=== PATIENT | female | born 1995 | race Caucasian/White ===

== ENCOUNTER 2019-01-18 12:02 | Outpatient (CLI) | payer MEDICAID ==
[~2019-01-18] VITALS: Ht 142.2 cm; Wt 73.3 kg
[~2019-01-18 12:02] MED LIST: ACET325T33 PO; CALC600T24 PO; CEPH-443 PO; FERR134T PO; IBUP-1542 PO; IBUP-1561 PO; PREN-6 PO; PRENAT PO
[2019-01-18 12:23] VITALS: BP 110/61; RESP 20
[2019-01-18 12:25] VITALS: Ht 142.2 cm; Wt 73.3 kg
== END 2019-01-18 13:50 | disposition home or self-care (01) ==
LOC: OBT 12:02 → L-D 12:02 → OBT 13:50
PROVIDERS: ATTEND Obstetrics & Gynecology
DX: O48.0 Post-term pregnancy (principal); Z3A.40 40 weeks gestation of pregnancy
CPT/HCPCS: 76815; 76818; Z7500; G0463